=== PATIENT | male | born 1995 | race African-American/Black ===

== ENCOUNTER 2016-06-09 21:55 | Emergency (ER) | payer MEDICAID ==
[~2016-06-09] VITALS: Ht 177.8 cm; Wt 61.2 kg
[2016-06-09 22:44] LABS: Basophils # (auto) 0.1 uL; Basophils % (auto) 0.9 % (0.0-2.0); Eosinophils # (auto) 0.1 uL; Hematocrit 46.8 % (41.0-53.0); Hemoglobin 15.6 g/dL (13.5-17.5); Lymphocytes # (auto) 1.6 uL; Lymphocytes % (auto) 26.8 % (10.0-50.0); Mean Corpuscular Hemoglobin 31.5 pg (28.0-32.0); Mean Corpuscular Hgb Conc. 33.3 g/dL (32.0-36.0); Mean Corpuscular Volume 94.8 fL (80.0-100.0); Mean Platelet Volume 8.8 fL (7.4-10.4); Monocytes # (auto) 0.4 uL; Neutrophils # (auto) 3.8 uL; Neutrophils % (auto) 65.3 % (37.0-80.0); Platelet Count (auto) 230 10^3/uL (140-450); Red Cell Distribution Width 12.7 % (11.6-16.0); White Blood Cell 5.9 10^3/uL (4.4-10.8)
[2016-06-09 23:06] LABS: Albumin 4.4 g/dL (3.4-5.0); Alkaline Phosphatase 90 U/L (45-117); Anion Gap 14 (5-15); Aspartate Aminotransferase 16 U/L (15-37); BUN/Creatinine Ratio 11.1; Blood Urea Nitrogen 11 mg/dL (7-18); Calcium 9.2 mg/dL (8.5-10.1); Carbon Dioxide 21 mmol/L (21-32); Chloride 108 mmol/L (98-107); GFR African American 120 mL/min; GFR Non-African American 100 mL/min; Glucose 98 mg/dL (74-106); Sodium 143 mmol/L (136-145)
[2016-06-09 23:21] LABS: Potassium 2.9 mmol/L (3.5-5.1)
[2016-06-10] MEDS ORDERED: POTASSIUM CHL 10 Meq TABLET PO ONE
[2016-06-10 01:05] LABS: Urine Bilirubin Negative (Negative); Urine Blood Negative /uL (Negative); Urine Color Yellow (Yellow); Urine Glucose Normal (Normal); Urine Mucus FEW (None Seen); Urine Nitrite Negative (Negative); Urine RBC 1 /hpf (0 - 3); Urine Squamous Epithelial Cell FEW /hpf (<5)
[2016-06-10 01:07] LABS: Urine Ketone 2+ (Negative)
[2016-06-10 03:27] VITALS: BP 121/81
== END 2016-06-10 03:32 | disposition home or self-care (01) ==
LOC: EDBD 21:55 → ER 21:57
DX: R07.89 Other chest pain (principal); E87.6 Hypokalemia; F12.10 Cannabis abuse, uncomplicated
CPT/HCPCS: 36415; 71010; 80053; 81001; 84484; 85025; 93005; 99285; G0434